=== PATIENT | female | born 1975 | race Caucasian/White ===

== ENCOUNTER → 2016-07-17 | Day surgery (SDC) | payer BC ==
[~2016-07-17] MED LIST: BIOT5CAP2 PO; CLON0.5T3 PO; FENTANYL PF 100 MCG/2 ML VIAL. ONE; FLUO40CA9 PO; IV RINGERS,LACTATED 1000ML 1,000 ML IV SCH; LIDOCAINE 2% PF Vial for OR 5 ML VIAL. ONE; NORE-69 PO; NORT10CA PO; PROC5TAB14 PO; PROPOFOL 20 ML IV ONE; PROPOFOL 40 ML IV ONE; TOPI100T90 PO; ZOLM5TAB PO
[2016-07-17 09:14] VITALS: BP 119/81
--- NOTE | 2016-07-20 14:14 | PATHOLOGY ---
PATHOLOGY REPORT * * * * * * * * FINAL DIAGNOSIS: A. Duodenal biopsy: - No significant pathologic abnormalities. B. Terminal ileum biopsy: - No significant pathologic abnormalities. C. Random colon biopsy: - No significant pathologic abnormalities. COMMENT: Sections of the duodenal biopsy reveal multiple segments of duodenal and small intestine mucosa. Where best oriented, the mucosal villi appear normal. There are no sprue-like changes or significant inflammatory changes. Sections of the terminal ileum biopsy reveal segments of small intestine mucosa. There are no sprue-like changes or significant inflammatory changes. Sections of the random colon biopsy reveal multiple segments of colonic mucosa containing several focally hyperplastic mucosal-associated lymphoid aggregates. There is no evidence of a chronic destructive colitis, lymphocytic colitis, or collagenous colitis. (JPM:; d/t: 07/20/16) REPORT ELECTRONICALLY SIGNED BY: Kane Shabazz M.D. DATE/TIME: 07/20/2016 14:14 * * * * * * * * GROSS PATHOLOGY: A. Received in formalin labeled "Anjelica Forge, duodenal biopsies," are eight segments of allen soft tissue measuring 1.4 x 1.2 x 0.1 cm in aggregate dimensions and ranging from 0.2 to 1.1 cm in maximum dimension. The specimen is submitted entirely in cassette A1. B. Received in formalin labeled "Anjelica Forge, terminal ileum," are two segments of allen soft tissue measuring 0.6 x 0.3 x 0.1 cm in aggregate dimensions and ranging from 0.5 to 0.6 cm in maximum dimension. The specimen is submitted entirely in cassette B1. C. Received in formalin labeled "Anjelica Forge, random colon biopsies," are nine segments of allen soft tissue measuring 1.3 x 1.3 x 0.2 cm in aggregate dimensions and ranging from 0.2 to 0.5 cm in maximum dimension. The specimen is submitted entirely in cassette C1. (CAA; 07/17/2016) INITIAL CPT CODE(S): A; 35293 B; 08681 C; 91373 Professional services performed by [email or web address] at [address] [address] Technical services performed by [facility] at [address] [place] [address], [address], [place] [address]. SPECIMEN(S) RECEIVED: A.Duodenal biopsy B.Terminal ileum biopsy C.Random colon biopsy CLINICAL HISTORY: Abdominal pain/diarrhea PATIENT: ANJELICA WELLS DEENA/AGE: 1003/27/1975 (Age: 41) PATIENT #: [id number] ALT CASE #: SPECIMEN COLLECTION DATE: 07/17/2016 SPECIMEN RECEIVED DATE: 07/17/2016 [facility] - [id number] [place] [address] - PHONE: [phone] * * * END OF REPORT * * *
== END | disposition home or self-care (01) ==
LOC: ENDOS 07:37
PROVIDERS: ATTEND Internal Medicine Gastroenterology
DX: K64.0 First degree hemorrhoids (principal); K52.9 Noninfective gastroenteritis and colitis, unspecified; K29.50 Unspecified chronic gastritis without bleeding; K31.9 Disease of stomach and duodenum, unspecified; F41.9 Anxiety disorder, unspecified; F32.9 Major depressive disorder, single episode, unspecified; Z83.3 Family history of diabetes mellitus
CPT/HCPCS: 43239; 45380; J2704; J3010; 88305